=== PATIENT | male | born 1945 | race Caucasian/White ===

== ENCOUNTER 2018-01-19 01:21 | Inpatient (IN) | payer MEDICARE, OTHER ==
[2018-01-19] MEDS ORDERED: HYDROmorphone 0.5 MG/0.5 ML Syringe IVPUSH ONE ×2 (01:55→03:48)
[2018-01-19] MEDS ORDERED: Metoclopramide 10 MG/2 ML SDV IVPUSH ONE (01:55)
[2018-01-19] MEDS ORDERED: Lactated Ringers 1,000 ML IV SCH (02:00)
--- NOTE | 2018-01-19 02:01 | EDM.PDOC ---
ED HPI GENERAL MEDICAL PROBLEM - General Chief Complaint: Abdominal Pain Stated Complaint: ABD PAIN Time Seen by Provider: 01/19/18 01:45 Source of Information: Reports: Patient, Old Records, RN History Limitations: Reports: No Limitations - History of Present Illness INITIAL COMMENTS - FREE TEXT/NARRATIVE: 72 yo male presents with RLQ abdominal pain that began about 10 pm. He has associated nausea, but no vomiting. No fever. No change in bowels. Had mild anorexia before the pain began. Has had heart surgery and a cholecystectomy, no other surgeries. Has not had pain like this before. Is not aware of any hernias. Onset: Sudden Onset Date: 01/18/18 Onset Time: 22:00 Duration: Hour(s): (4), Constant Location: Reports: Abdomen (RLQ) Quality: Reports: Ache Severity: Moderate Improves with: Reports: None Worsens with: Reports: None Context: Reports: Other (uncertain) Associated Symptoms: Reports: Nausea/Vomiting (no vomiting) Treatments [employer]: Reports: Other (see below) (none) RLQ abd pain Pain Score (Numeric/FACES): 8 - Related Data Allergies Allergy/AdvReac Type Severity Reaction Status Date / Time No Known Allergies Allergy Verified 01/19/18 01:32 Home Meds: Home Meds Aspirin [Lite Coat Aspirin] 325 mg PO DAILY 08/18/13 [History] Pravastatin [Pravachol] 80 mg PO BEDTIME 08/18/13 [History] Metoprolol Tartrate 25 mg PO BID 02/23/14 [History] Nitroglycerin [Nitrostat] 0.4 mg SL ASDIRECTED PRN 02/23/14 [History] Past Medical History Cardiovascular History: Reports: Bypass, CAD, High Cholesterol, Hypertension, Stents Gastrointestinal History: Reports: Colon Polyp, GERD, Pancreatitis Musculoskeletal History: Reports: Arthritis - Past Surgical History Cardiovascular Surgical History: Reports: Coronary Artery Bypass, Coronary Artery Stent GI Surgical History: Reports: Cholecystectomy, Colonoscopy, Hernia, Abdominal Social & Family History - Tobacco Use Smoking Status *Q: Never Smoker - Caffeine Use Caffeine Use: Reports: Coffee - Recreational Drug Use Recreational Drug Use: No ED ROS GENERAL - Review of Systems Review Of Systems: See Below Constitutional: Reports: Decreased Appetite HEENT: Reports: No Symptoms Respiratory: Reports: No Symptoms Cardiovascular: Reports: No Symptoms Endocrine: Reports: No Symptoms GI/Abdominal: Reports: Abdominal Pain, Nausea. Denies: Black Stool, Bloody Stool, Constipation, Diarrhea, Distension, Hematemesis, Hematochezia, Vomiting : Reports: No Symptoms Musculoskeletal: Reports: No Symptoms Skin: Reports: No Symptoms Neurological: Reports: No Symptoms Psychiatric: Reports: No Symptoms ED EXAM, GI/ABD - Physical Exam Exam: See Below Exam Limited By: No Limitations General Appearance: Alert, WD/WN, No Apparent Distress Eyes: Bilateral: Normal Appearance Ears: Normal External Exam, Normal Canal, Hearing Grossly Normal Nose: Normal Inspection, Normal Mucosa, No Blood Throat/Mouth: Normal Inspection, Normal Lips, Normal Oropharynx, Normal Voice, No Airway Compromise Head: Atraumatic, Normocephalic Neck: Normal Inspection, Supple, Non-Tender Respiratory/Chest: No Respiratory Distress, Lungs Clear, Normal Breath Sounds, No Accessory Muscle Use Cardiovascular: Regular Rate, Rhythm, No Edema GI/Abdominal Exam: Soft, No Distention, Tender (RLQ tenderness with deep palpation). No: Non-Tender Back Exam: Normal Inspection. No: CVA Tenderness (R), CVA Tenderness (L) Extremities: Normal Inspection, Normal Range of Motion, Non-Tender, No Pedal Edema Neurological: Alert, Oriented, CN II-XII Intact, Normal Cognition, No Motor/ Sensory Deficits Psychiatric: Normal Affect, Normal Mood Skin Exam: Warm, Dry, Intact, Normal Color, No Rash Lymphatic: No Adenopathy Course - Vital Signs Last Recorded V/S: Last Vital Signs Temp 36.0 C 01/19/18 01:34 Pulse 69 01/19/18 01:34 Resp 18 01/19/18 01:34 BP 177/95 H 01/19/18 01:34 Pulse Ox 98 01/19/18 01:34 - Orders/Labs/Meds Orders: Active Orders 24 hr Category Date Time Status Abdomen Pelvis w Cont [CT] Stat Exams 01/19/18 02:16 Taken Iopamidol [Isovue-300 (61%)] Med 01/19/18 02:45 Active 132 ml IV . DIRECTED Lactated Ringers [Ringers, Lactated] 1,000 ml Med 01/19/18 02:00 Active IV ASDIRECTED Sodium Chloride 0.9% [Normal Saline] 80 ml Med 01/19/18 02:45 Active IV ASDIRECTED Sodium Chloride 0.9% [Saline Flush] Med 01/19/18 02:43 Active 10 ml FLUSH ASDIRECTED PRN Medication Orders Lactated Ringer's (Ringers, Lactated) 1,000 mls @ 150 mls/hr IV ASDIRECTED OSVALDO Last Admin: 01/19/18 02:36 Dose: 150 mls/hr Sodium Chloride (Normal Saline) 80 mls @ 3 mls/sec IV ASDIRECTED OSVALDO Last Admin: 01/19/18 02:55 Dose: 3 mls/sec Iopamidol (Isovue-300 (61%)) 132 ml IV . DIRECTED OSVALDO Last Admin: 01/19/18 02:55 Dose: 132 ml Sodium Chloride (Saline Flush) 10 ml FLUSH ASDIRECTED PRN PRN Reason: Keep Vein Open Last Admin: 01/19/18 02:55 Dose: 10 ml Labs: Laboratory Tests 01/19/18 01/19/18 01/19/18 Range/Units 01:48 01:55 01:55 WBC 14.3 H (4.5-11.0) K/uL RBC 5.18 (4.30-5.90) M/uL Hgb 13.9 (12.0-15.0) g/dL Hct 42.2 (40.0-54.0) % MCV 82 (80-98) fL MCH 27 (27-31) pg MCHC 33 (32-36) % Plt Count 250 (150-400) K/uL Sodium 139 L (140-148) mmol/L Potassium 3.9 (3.6-5.2) mmol/L Chloride 103 (100-108) mmol/L Carbon Dioxide 24 (21-32) mmol/L Anion Gap 15.9 H (5.0-14.0) mmol/L BUN 19 H D (7-18) mg/dL Creatinine 1.1 (0.8-1.3) mg/dL Est Cr Clr Drug Dosing 59.59 mL/min Estimated GFR (MDRD) > 60 (>60) Glucose 130 H (74-106) mg/dL Calcium 8.5 (8.5-10.1) mg/dL C-Reactive Protein 0.15 (0.0-0.3) mg/dL Urine Color Yellow Urine Appearance Clear Urine pH 5.0 (4.5-8.0) Ur Specific [place] 1.020 (1.008-1.030) Urine Protein Negative (NEGATIVE) mg/dL Urine Glucose (UA) Negative (NEGATIVE) mg/dL Urine Ketones Negative (NEGATIVE) mg/dL Urine Occult Blood Small (NEGATIVE) Urine Nitrite Negative (NEGAITVE) Urine Bilirubin Negative (NEGATIVE) Urine Urobilinogen Normal (NORMAL) mg/dL Ur Leukocyte Esterase Negative (NEGATIVE) Urine RBC 0-5 (0-5) Urine WBC 0-5 (0-5) Ur Epithelial Cells Few Amorphous Sediment Not seen Urine Bacteria Not seen Urine Mucus Few Meds: Medications Generic Name Dose Route Start Last Admin Trade Name Freq PRN Reason Stop Dose Admin Lactated Ringer's 1,000 mls @ 150 mls/hr 01/19/18 02:00 01/19/18 02:36 Ringers, Lactated IV 150 mls/hr ASDIRECTED OSVALDO Administration Sodium Chloride 80 mls @ 3 mls/sec 01/19/18 02:45 01/19/18 02:55 Normal Saline IV 3 mls/sec ASDIRECTED OSVALDO Administration Iopamidol 132 ml 01/19/18 02:45 01/19/18 02:55 Isovue-300 (61%) IV 132 ml . DIRECTED OSVALDO Administration Sodium Chloride 10 ml 01/19/18 02:43 01/19/18 02:55 Saline Flush FLUSH 10 ml ASDIRECTED PRN Administration Keep Vein Open Discontinued Medications Generic Name Dose Route Start Last Admin Trade Name Freq PRN Reason Stop Dose Admin Hydromorphone HCl 0.5 mg 01/19/18 01:55 01/19/18 02:33 Dilaudid IVPUSH 01/19/18 01:56 0.5 mg ONETIME ONE Administration Metoclopramide HCl 10 mg 01/19/18 01:55 01/19/18 02:36 Reglan IVPUSH 01/19/18 01:56 10 mg ONETIME ONE Administration - Radiology Interpretation Free Text/Narrative:: CT abd/pelvis with contrast-acute appendictis CT Results Date: 01/19/18 Departure - Departure Time of Disposition: 04:00 Disposition: Admitted As Inpatient 67 Condition: Fair Clinical Impression: Appendicitis Qualifiers: Appendicitis type: acute appendicitis Acute appendicitis type: with localized peritonitis Qualified Code(s): K35.3 - Acute appendicitis with localized peritonitis - Discharge Information *PRESCRIPTION DRUG MONITORING PROGRAM REVIEWED*: Not Applicable *COPY OF PRESCRIPTION DRUG MONITORING REPORT IN PATIENT [place]: Not Applicable Referrals: PCP,None [Primary Care Provider] - Forms: ED Department Discharge - My Orders Last 24 Hours: My Active Orders 01/19/18 02:00 Lactated Ringers [Ringers, Lactated] 1,000 ml IV ASDIRECTED 01/19/18 02:16 Abdomen Pelvis w Cont [CT] Stat 01/19/18 02:43 Sodium Chloride 0.9% [Saline Flush] 10 ml FLUSH ASDIRECTED PRN 01/19/18 02:45 Iopamidol [Isovue-300 (61%)] 132 ml IV . DIRECTED Sodium Chloride 0.9% [Normal Saline] 80 ml IV ASDIRECTED - Assessment/Plan Last 24 Hours: My Active Orders 01/19/18 02:00 Lactated Ringers [Ringers, Lactated] 1,000 ml IV ASDIRECTED 01/19/18 02:16 Abdomen Pelvis w Cont [CT] Stat 01/19/18 02:43 Sodium Chloride 0.9% [Saline Flush] 10 ml FLUSH ASDIRECTED PRN 01/19/18 02:45 Iopamidol [Isovue-300 (61%)] 132 ml IV . DIRECTED Sodium Chloride 0.9% [Normal Saline] 80 ml IV ASDIRECTED
[2018-01-19] MEDS ORDERED: Sodium Chloride 0.9% 10 ML Syringe FLUSH PRN (02:43)
[2018-01-19] MEDS ORDERED: Iopamidol 612 MG/ML 150 ML Bottle IV SCH (02:45)
[2018-01-19] MEDS ORDERED: Sodium Chloride 0.9% 80 ML IV SCH (02:45)
[2018-01-19] MEDS ORDERED: Ampicillin/Sulbactam Na 3 GM in Sodium Chloride 0.9% 100 ML IV ONE ×2 (03:45→10:00)
[2018-01-19] MEDS ORDERED: HYDROmorphone/Normal Saline 15 MG/30 ML PCA IV PRN ×2 (03:57→07:18)
[2018-01-19] MEDS ORDERED: Naloxone 0.4 MG/ML SDV IVPUSH PRN ×2 (03:57→07:19)
[2018-01-19] MEDS: Dextrose 5%-Lactated Ringers 1,000 ML IV SCH ×2 (05:20→16:14)
[2018-01-19] MEDS ORDERED: Bupivacaine 0.5%/EPINEPHrine 1:200,000 50 ML MDV ONE (06:33)
[2018-01-19] MEDS ORDERED: Metoprolol Tartrate 25 MG Tab PO ONE (06:34)
[2018-01-19] MEDS ORDERED: Tamsulosin 0.4 MG Cap.ER PO ONE (07:30)
[2018-01-19] MEDS ORDERED: Aztreonam/Dextrose-Water 1 GM in Premix Bag 1 BAG IV ONE (09:00)
[2018-01-19] MEDS ORDERED: Ropivacaine 43 ML, Dexamethasone 8 MG, EPINEPHrine 0.4 MG, Sodium Chloride 0.9% 34.6 ML NERVRT SCH ×4 (10:00)
[2018-01-19] MEDS ORDERED: fentaNYL 250 MCG/5 ML SDV ONE (10:18)
[2018-01-19] MEDS ORDERED: Propofol 200 MG/20 ML SDV ONE (10:19)
[2018-01-19] MEDS ORDERED: Glycopyrrolate 0.2 MG/ML 5 ML MDV ONE (10:19)
[2018-01-19] MEDS ORDERED: Dexamethasone 4 MG/ML SDV ONE (10:19)
[2018-01-19] MEDS ORDERED: Succinylcholine 200 MG/10 ML MDV ONE (10:19)
[2018-01-19] MEDS ORDERED: Ondansetron 4 MG/2 ML SDV ONE (10:19)
[2018-01-19] MEDS ORDERED: Rocuronium 50 MG/5 ML Vial ONE (10:19)
[2018-01-19] MEDS ORDERED: Neostigmine Methylsulfate 1 MG/ML 5 ML Syringe ONE (10:19)
[2018-01-19] MEDS ORDERED: Labetalol 20 MG/4 ML Syringe ONE (10:35)
[2018-01-19] MEDS: Ondansetron 4 MG/2 ML SDV IVPUSH PRN ×2 (10:38→18:11)
[2018-01-19] MEDS ORDERED: Lactated Ringers 1,000 ML ONE (12:17)
[2018-01-19] MEDS ORDERED: Nitroglycerin 0.4 MG Tab.SL SL PRN (14:06)
[2018-01-19] MEDS: Aztreonam/Dextrose-Water 1 GM in Premix Bag 1 BAG IV SCH ×2 (15:57→22:33)
[2018-01-19] MEDS: Pantoprazole 40 MG Vial IV SCH (15:57)
[2018-01-19] MEDS: Ampicillin/Sulbactam Na 3 GM in Sodium Chloride 0.9% 100 ML IV SCH (17:57)
[2018-01-19] MEDS: Tamsulosin 0.4 MG Cap.ER PO SCH (20:44)
[2018-01-19] MEDS: Metoprolol Tartrate 25 MG Tab PO SCH (20:44)
[2018-01-20] MEDS ORDERED: diphenhydrAMINE 50 MG/ML SDV IVPUSH PRN (02:20)
[2018-01-20] MEDS: Ampicillin/Sulbactam Na 3 GM in Sodium Chloride 0.9% 100 ML IV SCH ×5 (02:25→23:18)
[2018-01-20] MEDS: Dextrose 5%-Lactated Ringers 1,000 ML IV SCH ×2 (04:18→15:55)
[2018-01-20] MEDS: Aztreonam/Dextrose-Water 1 GM in Premix Bag 1 BAG IV SCH ×3 (06:15→22:09)
[2018-01-20] MEDS ORDERED: Acetaminophen 325 MG Tab PO PRN (07:22)
[2018-01-20] MEDS ORDERED: HYDROmorphone 2 MG Tab PO PRN (07:23)
[2018-01-20] MEDS: Metoprolol Tartrate 25 MG Tab PO SCH ×2 (09:32→22:02)
[2018-01-20] MEDS: Bisacodyl 5 MG Tab PO SCH ×2 (09:32→22:03)
--- NOTE | 2018-01-20 09:33 | PN ---
DATE OF SERVICE: 01/20/2018 SUBJECTIVE: Maldonado is postoperative day 1 following appendectomy. He is afebrile. Vital signs have been stable. Pain is controlled. He has been up and ambulating. REVIEW OF SYSTEMS: Remainder of review of systems negative for any pertinent positives and negatives. OBJECTIVE: GENERAL: Maldonado Hurt is a 72-year-old male, alert and orientated. VITAL SIGNS: TPR 98.2, 89, 16. Blood pressure 122/77. HEENT: Negative. NECK: Supple. HEART: Regular rate and rhythm. LUNGS: Clear. ABDOMEN: Dressings dry and intact. HORTENCIA drain put out 5 mL of unknown color. Abdominal binder has been on. EXTREMITIES: Without peripheral edema. ASSESSMENT: Laparoscopic appendectomy, Terry Ugalde MD, Surgeon 01/19/2018. PLAN: 1. Dulcolax 10 mg two tablets b.i.d. until BM. 2. Tylenol 1000 mg q.6 hours p.r.n. pain. 3. Dilaudid 2 mg 1 to 2 every 4 hours p.r.n. pain. 4. Regular diet. 5. Change D5 LR to 100 mL per hour. 6. Good pulmonary toilet. 7. Plan discharge in a.. Neena Fitzgerald PA-C /[id number]
[2018-01-20] MEDS: Pantoprazole 40 MG Vial IV SCH (16:32)
[2018-01-20] MEDS: Acetaminophen 500 MG Tab PO PRN (16:53)
[2018-01-20] MEDS: Tamsulosin 0.4 MG Cap.ER PO SCH (22:02)
[2018-01-21] MEDS: Acetaminophen 500 MG Tab PO PRN ×2 (02:20→09:22)
[2018-01-21] MEDS: Dextrose 5%-Lactated Ringers 1,000 ML IV SCH (04:05)
[2018-01-21] MEDS: Ampicillin/Sulbactam Na 3 GM in Sodium Chloride 0.9% 100 ML IV SCH (05:33)
[2018-01-21] MEDS: Aztreonam/Dextrose-Water 1 GM in Premix Bag 1 BAG IV SCH (08:21)
[2018-01-21 08:46] VITALS: BP 147/87
[2018-01-21] MEDS: Bisacodyl 5 MG Tab PO SCH (08:49)
[2018-01-21] MEDS: Metoprolol Tartrate 25 MG Tab PO SCH (08:50)
--- NOTE | 2018-01-21 15:03 | DISCH ---
FINAL DIAGNOSES: 1. Perforated appendicitis with periappendiceal abscess. 2. Hyperlipidemia. 3. History of hypertension. OPERATIVE PROCEDURES: Done on 01/19/2018, diagnostic laparoscopy with appendectomy and drainage of periappendiceal abscess. SUMMARY: This is a 72-year-old presenting with acute appendicitis following preparation for surgery including antibiotics. The patient underwent a laparoscopic appendectomy, was noted to have a small periappendiceal abscess associated with perforation in the appendiceal base. This was showing multiple organisms consistent with a GI tract source. Postoperatively, he was doing well. This morning, he has tolerated a regular diet and has moved his bowels. He will be discharged home on Tylenol as needed for pain along with Augmentin 875 mg b.i.d. x5 days. Follow up with Dr. Ugalde at [facility] on 01/29/2018.
--- NOTE | 2018-01-21 16:49 | OR ---
DATE OF PROCEDURE: 01/19/2018 PREOPERATIVE DIAGNOSIS: Acute appendicitis. POSTOPERATIVE DIAGNOSIS: Perforated appendicitis with periappendiceal abscess. OPERATIVE PROCEDURES: Diagnostic laparoscopy with appendectomy and drainage of periappendiceal abscess ([id number]). ANESTHESIA: General. INDICATION FOR PROCEDURE: A 72-year-old male, presenting earlier this morning to the emergency room with a picture of lower abdominal pain. Workup including CT scan was consistent with appendicitis. Plan of treatment diagnostic laparoscopy, laparotomy if necessary, and appendectomy. Potential need for additional procedures depending on operative findings were reviewed along with possibility of complications such as bleeding, infection, leaks from various GI tract closure, as well as possibility of cardiopulmonary, septic, or hemorrhagic complications leading to were discussed, and the patient wishes to proceed. DETAILS OF PROCEDURE: The patient was taken to the operating room and placed in a supine position after general endotracheal anesthesia was induced, a Maynard catheter was inserted, and the abdomen was prepped and draped. Three fingerbreadths superior and to the left umbilicus, a transverse incision was made and the peritoneal cavity entered under direct vision with an Optiview trocar. Laparoscope was then reinserted. No underlying trocar insertion site injuries were seen. Following this, bilateral mid abdominal transversus abdominis plane blocks were placed and a 12 mm trocar was placed in the left lower quadrant as well as the right upper quadrant. Appendix was then mobilized upward and was noted to have perforation noted just adjacent to the cecum and a roughly a tablespoon area of purulent fluid collection around it. This abscess was then evacuated and cultures obtained. The mesoappendix was then from the base of the appendix at its junction with the cecum and divided with the Harmonic Scalpel. The junction of the appendix and the cecum was then divided with the RUDDY purple load that the tissues at this level appeared to be satisfactory to hold up the emelia. The appendix was then placed in a specimen bag and taken out through the left lower quadrant site. The area dissection was inspected and no further bleeding or other problems were noted. The appendiceal staple line and adjacent mesoappendix were then secured with some additional fibrin sealant. A Todd-Condon drain was then taken out through this. A 5-mm trocar was placed in the right flank and taped across the area of the appendectomy staple line and from there into the pelvis and there were no further problems. All the trocars were removed, the peritoneal cavity was deflated. Each of the 12 mm site was closed with 0 Vicryl stitch and the skin with 4-0 Vicryl skin stitch. Dressing was applied. The patient was taken to the recovery room in satisfactory condition. Terry Ugalde MD /[id number]
== END 2018-01-21 09:55 | disposition home or self-care (01) | DRG 340 ==
LOC: JP.ED 01:21 → JP.MS 03:54
PROVIDERS: ADMIT Surgery; ATTEND Surgery
PROC: 0DTJ4ZZ Resection of Appendix, Percutaneous Endoscopic Approach (ICD-10-PCS; principal; 2018-01-19)
DX: R10.31 Right lower quadrant pain (principal); R11.0 Nausea; I25.10 Atherosclerotic heart disease of native coronary artery without angina pectoris; E78.00 Pure hypercholesterolemia, unspecified; K35.33 Acute appendicitis with perforation, localized peritonitis, and gangrene, with abscess; K21.9 Gastro-esophageal reflux disease without esophagitis; M19.90 Unspecified osteoarthritis, unspecified site; Z95.5 Presence of coronary angioplasty implant and graft; Z95.1 Presence of aortocoronary bypass graft; Z90.49 Acquired absence of other specified parts of digestive tract; Z79.899 Other long term (current) drug therapy; Z79.82 Long term (current) use of aspirin; Z86.010 Personal history of colon polyps; E78.5 Hyperlipidemia, unspecified; I10 Essential (primary) hypertension
CPT/HCPCS: 36415; 74177; 80048; 81001; 85027; 86140; 96361; 96375; 99284; 99285; J1170; J2765; J7030; J7050; J7120; 80053; 83735; 83880; 84100; 87070; 87075; 87077; 87186; 87205; 88304; 94762; 96365; 96376; A9270-GY; C9113; J0171; J0295; J0330; J1100; J1200; J2405; J2704; J2710; J2795; J3010; J3490; J7042

== ENCOUNTER 2023-02-23 04:51 | Emergency (ER) | payer MEDICARE, OTHER ==
[2023-02-23 05:29] LABS: BASOPHILS ABSOLUTE AUTO 0.06 K/uL (0.00-0.10); BASOPHILS PERCENT AUTO 0.8 % (0.1-1.3); EOSINOPHILS ABSOLUTE AUTO 0.04 K/uL (0.00-0.40); EOSINOPHILS PERCENT AUTO 0.6 % (0.0-5.4); HEMOGLOBIN 14.1 g/dL (12.9-16.9); IMMATURE GRAN PERCENT AUTO 0.1 % (0.0-0.7); LYMPHOCYTES ABSOLUTE AUTO 3.28 K/uL (0.8-3.3); LYMPHOCYTES PERCENT AUTO 45.6 % (11.4-47.7); MEAN CORPUSCULAR HEMOGLOBIN 27.9 pg (31.6-35.5); MEAN CORPUSCULAR HGB CONC 33.6 g/dL (31.6-35.5); MEAN CORPUSCULAR VOLUME 83.2 fL (81.4-99.0); MONOCYTES ABSOLUTE AUTO 1.13 K/uL (0.20-0.90); MONOCYTES PERCENT AUTO 15.7 % (3.3-12.6); NEUTROPHILS ABSOLUTE AUTO 2.68 K/uL (1.0-7.6); NEUTROPHILS PERCENT AUTO 37.2 % (40.0-78.1); PLATELET COUNT,PLT 209 K/uL (130-375); RED BLOOD CELL COUNT 5.05 M/uL (4.14-5.76); WHITE BLOOD CELL COUNT,WBC 7.2 K/uL (3.2-11.0)
[2023-02-23 05:31] LABS: IMMATURE GRAN ABSOLUTE AUTO 0.01 K/uL (0.00-0.23)
[2023-02-23 05:48] LABS: ANION GAP 11.4 mmol/L (5.0-14.0); CALCIUM 8.4 mg/dL (8.5-10.1); CREATININE 1.1 mg/dL (0.8-1.3); EST CRCL DRUG DOSING (CG) 53.41 mL/min; POTASSIUM,K 3.7 mmol/L (3.6-5.2); TROPONIN I HIGH SENSITIVITY 6.8 pg/mL (<=60.3)
[2023-02-23 06:40] VITALS: BP 117/67; PULSE 61
== END 2023-02-23 08:15 | disposition home or self-care (01) ==
LOC: JP.ED 04:51
DX: R07.89 Other chest pain (principal); I25.10 Atherosclerotic heart disease of native coronary artery without angina pectoris; E78.00 Pure hypercholesterolemia, unspecified; I10 Essential (primary) hypertension; M19.90 Unspecified osteoarthritis, unspecified site; Z95.5 Presence of coronary angioplasty implant and graft; Z79.82 Long term (current) use of aspirin; Z79.899 Other long term (current) drug therapy
CPT/HCPCS: 36415; 71045; 71045-26; 80048; 84484; 85025; 93005; 93010; 99283; 99285

== ENCOUNTER 2025-03-07 14:34 | Emergency (ER) | payer MEDICARE, OTHER ==
[2025-03-07 15:09] LABS: BASOPHILS ABSOLUTE AUTO 0.07 K/uL (0.00-0.10); BASOPHILS PERCENT AUTO 1.1 % (0.1-1.3); EOSINOPHILS ABSOLUTE AUTO 0.03 K/uL (0.00-0.40); EOSINOPHILS PERCENT AUTO 0.5 % (0.0-5.4); IMMATURE GRAN PERCENT AUTO 0.2 % (0.0-0.7); LYMPHOCYTES ABSOLUTE AUTO 2.70 K/uL (0.8-3.3); LYMPHOCYTES PERCENT AUTO 40.7 % (11.4-47.7); MONOCYTES ABSOLUTE AUTO 0.90 K/uL (0.20-0.90); MONOCYTES PERCENT AUTO 13.6 % (3.3-12.6); NEUTROPHILS ABSOLUTE AUTO 2.92 K/uL (1.0-7.6); NEUTROPHILS PERCENT AUTO 43.9 % (40.0-78.1); PLATELET COUNT,PLT 208 K/uL (130-375); RED BLOOD CELL COUNT 4.60 M/uL (4.14-5.76); WHITE BLOOD CELL COUNT,WBC 6.6 K/uL (3.2-11.0)
[2025-03-07 15:10] LABS: IMMATURE GRAN ABSOLUTE AUTO 0.01 K/uL (0.00-0.23)
[2025-03-07 15:33] LABS: A/G RATIO 0.5 (1.2-2.2); ALANINE AMINOTRANSFERASE,ALT 35 U/L (12-78); ASPARTATE AMNIOTRANSFERASE,AST 27 U/L (15-37); BILIRUBIN TOTAL 1.1 mg/dL (0.2-1.0); BLOOD UREA NITROGEN,BUN 21 mg/dL (7-18); CARBON DIOXIDE,CO2 26 mmol/L (21-32); CHLORIDE,CL 104 mmol/L (100-108); CREATININE 1.1 mg/dL (0.8-1.3); EST CRCL DRUG DOSING (CG) 53.55 mL/min; ESTIMATED GFR 69 mL/min (>60); GLUCOSE RANDOM 108 mg/dL (74-106); POTASSIUM,K 4.3 mmol/L (3.6-5.2); PROTEIN TOTAL,TP 6.7 g/dL (6.4-8.2); SODIUM,NA 138 mmol/L (140-148); TROPONIN I HIGH SENSITIVITY 4.3 pg/mL (<=60.3)
[2025-03-07 16:54] VITALS: BP 131/78; PULSE 63
== END 2025-03-07 16:51 | disposition home or self-care (01) ==
LOC: JP.ED 14:34
DX: I49.3 Ventricular premature depolarization (principal); I25.10 Atherosclerotic heart disease of native coronary artery without angina pectoris; I10 Essential (primary) hypertension; Z95.5 Presence of coronary angioplasty implant and graft; Z90.49 Acquired absence of other specified parts of digestive tract; Z79.82 Long term (current) use of aspirin; Z79.899 Other long term (current) drug therapy
CPT/HCPCS: 36415; 80053; 83735; 84484; 85025; 93005; 93010; 99284; 99285